=== PATIENT | male | born 1960 | race Hispanic/Latino ===

== ENCOUNTER 2022-05-21 10:44 | Inpatient (IN) | payer SELFPAY ==
[2022-05-21] MEDS ORDERED: Iopamidol-370 76% 500 ML 1 ML ONE (10:54)
[2022-05-21 11:28] LABS: Reflex for Review?? YES
[2022-05-21 11:29] LABS: Hemoglobin 4.6 g/dL (14.0-18.0); Mean Corpuscular HGB CONC 36.5 g/dL (32.0-36.0); Mean Corpuscular Hemoglobin 37.4 pg (27.0-31.0); Mean Platelet Volume 18.1 fL (7.4-10.4); Platelet Count 4 10x3/uL (130-400); RBC Distribution Width 20.7 % (11.5-14.5); Red Blood Cell (RBC) Count 1.24 mill/uL (4.70-6.10)
[2022-05-21 11:42] LABS: ALT (SGPT) 37 U/L (8-55); AST (SGOT) 17 U/L (5-34); Albumin 3.5 g/dL (3.4-4.8); Alkaline Phosphatase 102 U/L (40-110); BUN (Urea Nitrogen) 32 mg/dL (8.4-25.7); Bilirubin, Total 0.7 mg/dL (0.2-1.2); Calc. Creatinine Clearance 0 mL/min (70-130); Carbon Dioxide 18 mmol/L (23-31); Chloride 105 mmol/L (98-107); Estimated GFR 57; Globulin 3.3 g/dL (2.4-3.5); Glucose 120 mg/dL (80-115); Potassium 4.4 mmol/L (3.5-5.1); Protein, Total 6.8 g/dL (5.8-8.1); Sodium 134 mmol/L (136-145)
[2022-05-21 11:49] LABS: Lymphocytes 78 % (21-51); MDiff Complete? YES; Monocytes 20 % (0-10); Neutrophil 2 % (42-75); Ovalocytes MODERATE= 6-15 cells (100X) (0-1/hpf); Platelet Morphology Comment Appears Decreased; Polychromasia SLIGHT = 2-3 cells (100X) (0-2/hpf); Schistocytes SLIGHT = 2-5 cells (100X) (0-1/hpf); Tear Drops SLIGHT = 2-5 cells (100X) (0-1/hpf)
[2022-05-21 11:53] LABS: Anion Gap 15 mmol/L (10-20)
[2022-05-21 11:55] LABS: CKMB 0.4 ng/mL (0-6.6)
[2022-05-21 12:12] LABS: Acetaminophen Less than 10.0 mcg/mL (10.0-30.0); Alcohol Less than 10 mg/dL (Less than 10); CK (CPK) 28 U/L (30-200); Salicylate Less than 8.0 mg/dL (15.0-30.0)
[2022-05-21] MEDS ORDERED: Acetaminophen 325 MG TAB PO PRN (13:15)
[2022-05-21] MEDS ORDERED: Lactated Ringer's 500 ML IV SCH (13:15)
[2022-05-21 17:25] VITALS: BMI 22.6
[2022-05-21] MEDS ORDERED: FLU VACC QS2022-23(6MOS UP)/PF 60 MCG/0.5 ML SYRINGE IM ONE (17:45)
[2022-05-21] MEDS: Nicotine 14 MG PATCH TD SCH (18:43)
[2022-05-21] MEDS: Famotidine 20 MG TAB PO SCH (21:06)
[2022-05-22 04:11] LABS: Hemoglobin 5.8 g/dL (14.0-18.0); Mean Corpuscular HGB CONC 35.4 g/dL (32.0-36.0); Mean Corpuscular Hemoglobin 34.4 pg (27.0-31.0); Mean Corpuscular Volume 97.2 fl (78.0-98.0); Mean Platelet Volume 15.2 fL (7.4-10.4); Platelet Count 12 10x3/uL (130-400); RBC Distribution Width 20.5 % (11.5-14.5); Red Blood Cell (RBC) Count 1.68 mill/uL (4.70-6.10); White Blood Cell (WBC) Count 1.1 10x3/uL (4.8-10.8)
[2022-05-22 04:27] LABS: ALT (SGPT) 36 U/L (8-55); AST (SGOT) 18 U/L (5-34); Albumin 3.2 g/dL (3.4-4.8); Alkaline Phosphatase 90 U/L (40-110); Anion Gap 13 mmol/L (10-20); BUN (Urea Nitrogen) 23 mg/dL (8.4-25.7); Calc. Creatinine Clearance 82 mL/min (70-130); Calcium 8.4 mg/dL (7.8-10.44); Carbon Dioxide 20 mmol/L (23-31); Chloride 106 mmol/L (98-107); Estimated GFR 94; Globulin 3.4 g/dL (2.4-3.5); Glucose 108 mg/dL (80-115); Potassium 4.5 mmol/L (3.5-5.1); Protein, Total 6.6 g/dL (5.8-8.1); Sodium 134 mmol/L (136-145)
[2022-05-22 04:53] LABS: Anisocytosis MODERATE=16-30 cells (100X) (0-5/hpf); Elliptocytes MODERATE= 6-15 cells (100X) (0-1/hpf); Lymphocytes 100 % (21-51); MDiff Complete? YES; Platelet Morphology Comment Appears Decreased; Tear Drops SLIGHT = 2-5 cells (100X) (0-1/hpf)
[2022-05-22 10:58] LABS: Iron 153 ug/dL (65-175); Iron Binding Capacity, Total 155 mcg/dL (261-462)
[2022-05-22 11:32] LABS: Ferritin 831.69 ng/mL (22-322)
[2022-05-22 11:54] LABS: INR-International Normal Ratio 1.2; PTT 27.8 sec (22.9-36.1); Prothrombin Time 15.2 sec (12.0-14.7)
[2022-05-22] MEDS: Nicotine 14 MG PATCH TD SCH (15:31)
[2022-05-22 20:32] VITALS: BP 110/55; TEMP 98.5
[2022-05-22] MEDS: Famotidine 20 MG TAB PO SCH (20:33)
== END 2022-05-22 21:10 | disposition short-term general hospital (02) | DRG 841 ==
LOC: ERS 10:44 → ERHOLD 12:28 → 2NO 16:23
PROVIDERS: ADMIT Student in an Organized Health Care Education/Training Program; ATTEND Family Medicine
PROC: 30233R1 Transfusion of Nonautologous Platelets into Peripheral Vein, Percutaneous Approach (ICD-10-PCS; principal; 2022-05-21)
PROC: 30233N1 Transfusion of Nonautologous Red Blood Cells into Peripheral Vein, Percutaneous Approach (ICD-10-PCS; 2022-05-21)
PROC: 07DR3ZX Extraction of Iliac Bone Marrow, Percutaneous Approach, Diagnostic (ICD-10-PCS; 2022-05-22)
DX: C95.90 Leukemia, unspecified not having achieved remission (principal); D61.818 Other pancytopenia; F17.210 Nicotine dependence, cigarettes, uncomplicated; K64.9 Unspecified hemorrhoids; Z20.822 Contact with and (suspected) exposure to COVID-19
CPT/HCPCS: 36415; 36430; 38222; 70450; 71045; 71260; 74177; 77012; 80053; 80307; 82140; 82550; 82553; 82607; 82728; 83540; 83550; 83615; 83690; 84443; 84484; 84550; 85025; 85060; 85610; 85730; 86850; 86900; 86901; 88184; 88237; 88305; 88311; 88313; 93005; 94760; P9016; P9035; Q9967; U0003; U0005